=== PATIENT | female | born 1970 | race Caucasian/White ===

== ENCOUNTER → 2019-08-16 | Outpatient (CLI) | payer BC ==
[~2019-08-16] MED LIST: GABAPENTIN100 MG PO; IOPAMIDOL 370 MG/ML 200 ML INFUS..BTL INJ ONE; LISINOPRIL20 MG PO; LOPRESSOR25 MG PO; LOSARTAN POTASS25 MG PO; PANTOPRAZOLE SO40 MG PO; SODIUM CHLORIDE 0.9% 250ML 250 ML ONE; SODIUM CHLORIDE 0.9% 500ML 500 ML ONE; SODIUM CHLORIDE 0.9% 50ML 50 ML ONE
[2019-08-16 10:43] LABS: CREATININE, SERUM 1.04 mg/dL (0.57-1.11)
--- NOTE | 2019-08-16 12:31 | Diagnostic Imaging Report ---
EXAM: CT Chest WITH contrast- Pulmonary Embolism Protocol INDICATION: Pulmonary embolism COMPARISON: None TECHNIQUE: Chest was scanned utilizing a multidetector helical scanner from the lung apex through the level of the diaphragm after administration of IV contrast. Thin section reconstructions were obtained with special concentration on the pulmonary arteries. Coronal and sagittal reformations were obtained. Pulmonary embolism protocol was performed. IV CONTRAST: 100 cc of Isovue 370 RADIATION DOSE: Total DLP: 652.3 mGy*cm Dose modulation, iterative reconstruction, and/or weight based adjustment of the mA/kV was utilized to reduce the radiation dose to as low as reasonably achievable. COMPLICATIONS: None FINDINGS: LINES/ TUBES: None. PULMONARY ARTERIES: No filling defect is identified within the pulmonary arteries to the segmental level. The subsegmental pulmonary arteries are not well opacified. Main pulmonary artery measures 3.0 cm in diameter. LUNGS AND AIRWAYS: The central airways are patent. No focal consolidation. No suspicious pulmonary nodules. Posterior left lower lobe thin-walled cyst. PLEURA: No pleural effusion. No pneumothorax. HEART AND MEDIASTINUM: Incompletely visualized thyroid gland appears unremarkable. No supraclavicular, axillary, mediastinal, or hilar lymphadenopathy. Multichamber cardiomegaly. No evidence of right heart strain. No pericardial effusion. Scattered atherosclerotic coronary artery calcifications. UPPER ABDOMEN: Status post partial gastrectomy and cholecystectomy. No other focal abnormalities of the partially visualized liver, spleen, pancreas, adrenals, or left kidney. Partially visualized anterior abdominal hernia containing transverse colon. BONES: The visualized bony thorax is within normal limits. SOFT TISSUES: No acute osseous injury. No suspicious lytic or blastic lesions. IMPRESSION: No pulmonary embolism. No focal consolidation or pulmonary edema. No suspicious nodules. Scattered atherosclerotic coronary artery calcifications. Signed by: Aj Jett MD on 08/16/2019 12:28 PM
== END ==
LOC: CT 09:41
PROVIDERS: ATTEND Family Medicine
DX: I26.99 Other pulmonary embolism without acute cor pulmonale (principal)
CPT/HCPCS: 36415; 71260; 82565; 84520; 96360; J7040; J7050; Q9967

== ENCOUNTER 2021-04-15 06:12 | Emergency (ER) | payer BC ==
[~2021-04-15] VITALS: Ht 165.1 cm; Wt 139.3 kg
[~2021-04-15 06:12] MED LIST changes: -IOPAMIDOL 370 MG/ML 200 ML INFUS..BTL INJ ONE; -SODIUM CHLORIDE 0.9% 250ML 250 ML ONE; -SODIUM CHLORIDE 0.9% 500ML 500 ML ONE; -SODIUM CHLORIDE 0.9% 50ML 50 ML ONE
[2021-04-15] MEDS ORDERED: HYDROMORPHONE 1MG/1ML INJ IV STA ×2 (06:41→08:05)
[2021-04-15] MEDS ORDERED: SODIUM CHLORIDE 0.9% 500ML 500 ML IV ONE (06:45)
[2021-04-15] MEDS ORDERED: ONDANSETRON HCL INJ 2MG/ML 2ML 2 MG/ML VIAL IV STA (06:53)
[2021-04-15] MEDS ORDERED: SODIUM CHLORIDE 0.9% 1000ML 1,000 ML IV SCH (08:15)
[2021-04-15] MEDS ORDERED: ORPHENADRINE CITRATE 30 MG/ML VIAL IV ONE (09:30)
[2021-04-15 10:25] VITALS: BP 154/72
== END 2021-04-15 10:20 | disposition other institution (70) ==
LOC: ER 07:07
DX: T84.89XA Other specified complication of internal orthopedic prosthetic devices, implants and grafts, initial encounter (principal); Z96.642 Presence of left artificial hip joint; M54.9 Dorsalgia, unspecified; G89.29 Other chronic pain; Z20.822 Contact with and (suspected) exposure to COVID-19
CPT/HCPCS: 73502; 99284; J1170; J2360; J2405; J7040; U0002